=== PATIENT | male | born 1985 | race Caucasian/White ===

== ENCOUNTER 2018-08-05 20:08 | Emergency (ER) | payer MEDICAID ==
[~2018-08-05] VITALS: Ht 170.2 cm; Wt 106.6 kg
[2018-08-05 20:12] VITALS: BP 152/99
--- NOTE | 2018-08-05 20:14 | NUR ---
PT AMBULATORY TO ER LOBBY W/ STEADY GAIT IN STABLE CONDITION.
[2018-08-05 20:48] LABS: BASOPHILS % (AUTO) 0.1 % (0.0-2.0); EOSINOPHILS # (AUTO) 0.1 K/uL (0-0.4); HEMATOCRIT 43.7 % (36-52); HEMOGLOBIN 15.1 g/dL (12.0-18.0); LYMPHOCYTES # (AUTO) 1.8 K/uL (2.0-11.5); LYMPHOCYTES % (AUTO) 17.8 % (20.5-51.1); MEAN CORPUSCULAR HEMOGLOBIN 29 pg (27-31); MEAN CORPUSCULAR HGB CONC 35 g/dL (33-37); MEAN CORPUSCULAR VOLUME 84.1 fL (80-94); MONOCYTES # (AUTO) 1.1 K/uL (0.8-1.0); MONOCYTES % (AUTO) 10.9 % (1.7-9.3); NEUTROPHILS % (AUTO) 70.2 % (42.2-75.2); PLATELET COUNT (AUTO) 262 K/uL (140-450); RED CELL DISTRIBUTION WIDTH 12.6 % (11.6-13.7); WHITE BLOOD COUNT (AUTO) 9.9 K/uL (4.8-10.8)
[2018-08-05 20:50] LABS: APPEARANCE,URINE CLEAR (CLEAR); BILIRUBIN,URINE NEGATIVE (NEGATIVE); BLOOD, URINE 1+ (NEGATIVE); COLOR,URINE YELLOW (YELLOW); LEUKOCYTE ESTERASE ,URINE NEGATIVE (NEGATIVE); NITRITE, URINE NEGATIVE (NEGATIVE); UGLUCOSE NEGATIVE (NEGATIVE)
[2018-08-05 20:57] LABS: ANION GAP 12.5 (8-16); CARBON DIOXIDE 30.1 mmol/L (21-32); POTASSIUM 3.6 mmol/L (3.5-5.1)
[2018-08-05 21:04] LABS: ALBUMIN 4.1 g/dL (3.4-5.0); TOTAL BILIRUBIN 0.7 mg/dL (0.0-1.0)
[2018-08-05 21:18] LABS: WBC,URINE 0-5 /HPF (0-5)
--- NOTE | 2018-08-05 21:36 | NUR ---
PT AMBULATED TO BED 6.
--- NOTE | 2018-08-05 21:46 | NUR ---
Pt presents to ED with complaints of RLQ pain starting last night. Patient states the pain is non provoked, cramping, states "it feels like something is twisting inside," non radiating, /10. Pt noted with facial grimacing, guarding to abdomen. Abdomen soft, tender with palpation all over. Active bowel sounds x 4 quadrants. Pt also c/o nausea and constipation. Pt states "I forced myself to go last night but it was hard." LBM last night. Denies vomiting. Denies fever or chills. Pt also c/o headache at this time with photophobia. Denies surgeries. Denies medical hx. Denies any painful urination. AOX4, clear speech. Placed on hall monitor, pulse oximetry and blood pressure monitoring. Sinus tachycardiac noted on cardiac montior. Skin warm and dry, normal in color for ethnicity. Waiting for ERMD evaluation.
[2018-08-05] MEDS ORDERED: KETOROLAC 60 MG/2 ML VIAL IM ONE (23:30)
--- NOTE | 2018-08-05 23:32 | NUR ---
Dr. Fuentes evaluating patient at bedside.
--- NOTE | 2018-08-05 23:45 | NUR ---
PAIN REDUCED TO ACCEPTABLE LEVEL FOR PT 4/10 AT THIS TIME S/P TORADOL ADMIN.
--- NOTE | 2018-08-05 23:47 | NUR ---
Patient discharged with v/s stable. Written and verbal after care instructions given and explained. Patient alert, oriented and verbalized understanding of instructions. Ambulatory with steady gait. All questions addressed prior to discharge. ID band removed. Patient advised to follow up with PMD. Rx of LACTULOSE, MINERAL OIL, MOTRIN given. Patient educated on indication of medication including possible reaction and side effects. Opportunity to ask questions provided and answered.
[2018-08-05 23:48] VITALS: BP 138/84
== END 2018-08-05 23:47 | disposition home or self-care (01) ==
LOC: MED 20:08
DX: R10.9 Unspecified abdominal pain (principal); R50.9 Fever, unspecified; H53.149 Visual discomfort, unspecified; R11.0 Nausea
CPT/HCPCS: 36415; 74022; 80053; 81001; 83690; 85025; 96372; 99284; J1885